=== PATIENT | male | born 1960 | race Caucasian/White ===

== ENCOUNTER → 2018-05-21 15:50 | Outpatient (CLI) | payer OTHER, SELFPAY ==
--- NOTE | 2018-05-21 15:52 | CT_ITS ---
STUDY: LOW DOSE CT LUNG CANCER SCREENING REASON FOR EXAM: Male, 57 years old. 22 pack year history of tobacco use. RADIATION DOSAGE (If Supplied By Facility): CTDIvol = ( 3.40 ) mGy, DLP = ( 108.49 ) mGycm TECHNIQUE: No contrast was administered. Low dose technique was utilized (average mAS-38 and kVp 120). 1.25 mm axial source images with a slice interval of 1.25-mm were reconstructed in lung windows. 2.5 mm axial source images with a slice interval of 2.5-mm were reconstructed in lung windows. 5.0 mm axial source images with a slice interval of 5.0-mm were reconstructed in soft tissue windows. Nodule measured using lung windows on PACS and/or independent workstation with automated measurement of minimum and maximum diameter. Nodule measurement reported as average diameter rounded to the nearest whole number. Growth is defined as an increase ins size of greater than 1.5 mm. COMPARISON: Chest, July 21, 2017. NODULES: Total lung nodules (excluding granulomas): 0 Emphysema: There are small blebs in the right lung apex. No other evidence of emphysematous change. Endobronchial lesion: None Aorta: There is minimal atherosclerotic changes of the thoracic aorta. There is no aneurysm. Coronary arteries: There are coronary artery calcifications. Heart: The heart is normal in size. Pulmonary artery: Normal Mediastinal nodes: Normal Other chest and abdominal findings: There are minimal degenerative changes of the thoracic spine. CT/Low Dose CT Lung Screening IMPRESSION: Lung-RADS category 1 - Continue annual screening with LDCT in 12 months. IMPORTANT NOTES FOR USE: ACR Lung-RADS Version 1.0 Assessment Categories Release Date: February 15, 2014 Category: Coded 0-4 bases on nodule(s) with highest degree of suspicion. Negative screen is defined as categories 1 and 2; a positive screen is defined as categories 3 and 4. Category 3 and 4A nodules that are unchanged on interval CT should be coded as category 2, and individuals returned to screening in 12 months. Category 4X: Category 3 or 4 nodules with additional imaging findings that increase the suspicion of lung cancer, such as spiculation, GGN that doubles in size in 1 year, enlarged lymph notes, etc. Category Modifiers: S (significant finding unrelated to lung cancer) and C (prior history of treated lung cancer) may be added to the 0-4 Lung-RADS Electronically Signed: Curtis Lion DO at 16:21 EDT Tel [phone], Service support ,
== END ==
PROVIDERS: Family Provider Preventive Medicine Occupational Medicine; PCP Preventive Medicine Occupational Medicine; Visit Provider Internal Medicine Pulmonary Disease
DX: Z87.891 Personal history of nicotine dependence (principal)
CPT/HCPCS: G0297

== ENCOUNTER 2021-02-19 21:25 | Emergency (ER) | payer OTHER, MEDICAID, SELFPAY ==
[2021-02-19 21:26] VITALS: BP 152/85; PULSE 95; RESP 18; TEMP 36.7; O2SAT 97; BMI 35.2
[2021-02-19 21:52] LABS: Absolute Lymphocyte Count 1.78 X10^3/uL (0.83-4.51); Basophil# 0.04 X10^3/uL; Basophil% 0.6 % (0-1); Eosinophil# 0.28 X10^3/uL; Hemoglobin 13.4 g/dL (13.0-16.5); Lymphocyte # 1.78 X10^3/ul (0.83-4.51); Lymphocyte % 25.6 % (19-41); Mean Corp Hgb Conc 33.5 g/dL (32-36); Mean Corpuscular Hgb 30.7 pg (27.0-32.0); Mean Corpuscular Volume 91.7 fL (80-94); Mean Platelet Vol. 9.7 fl (6.2-12.0); Monocyte# 0.87 X10^3/uL; Monocyte% 12.5 % (0-10); NRBC Flagged by Analyzer 0 % (0-5); Neutrophil # 3.97 X10^3/uL (2.7-7.7); Platelet Count 225 K/mm3 (150-450); RBC Distribution Width SD 43.6 fl (35.1-43.9); Red Blood Count 4.36 M/mm3 (4.6-6.2)
[2021-02-19 22:06] LABS: Anion Gap 6 (5-15); BUN 20 mg/dL (7-18); BUN/Creat Ratio 17.1 RATIO (10-20); Calcium,Total 9.2 mg/dL (8.5-10.1); Chloride 108 mmol/L (98-107); Creatinine, Serum 1.17 mg/dL (0.70-1.30); EST Glomerular Filtration Rate 68 mL/min (>60); Est Glom Filt Rate - Afr Amer 82 mL/min (>60); Estimated Creatinine Clearance 70.19 ml/min; Glucose 97 mg/dL (74-106); Sodium Level 140 mmol/L (136-145)
--- NOTE | 2021-02-19 22:21 | CT_ITS ---
HISTORY: LLQ pain TECHNIQUE: Helically acquired images were obtained of the abdomen and pelvis without oral or IV contrast. A radiation dose optimization technique was used for this scan. COMPARISON: Most recent comparison study is CT scan of the chest from May 21, 2018. CT scan of the abdomen and pelvis is from May 04, 2016. FINDINGS: # of images incl. paperwork: [phone] LUNG BASES: Lung bases are clear. Coronary artery calcific ASCVD. Aortic valvular disease. CT abdomen: Progressive degenerative disc disease at every level within the lumbar spine with vacuum disc phenomenon. Annular tear with herniation of the vacuum from the nucleus pulposus region into the spinal canal dorsal to the L4-L5 level. This is new since the previous study. The gallbladder has been resected. Liver, spleen, pancreas, and adrenal glands are normal. The right kidney is normal. Left perirenal edema, left hydronephrosis, left hydroureter, left periureteric edema. Within the distal left ureter, within a centimeter of the left ureterovesicular junction is a 3 x 4 mm obstructing stone.. The aorta is diseased with atherosclerotic plaque, but without aneurysm.. There is no intra-or extrahepatic biliary ductal dilatation. CT pelvis: No ascites is present. The prostate gland is not enlarged. Inguinal hernias containing a small amount of fat.. The appendix is normal. Series 2 image 130. The bladder is decompressed. Bowel gas pattern is normal. CT/Abdomen/Pelvis without Cont IMPRESSION: 3 x 4 mm distal left ureteric stone with left hydronephrosis hydroureter and perirenal edema. Individualized dose optimization techniques were used for this CT. at 2305 Reported and signed by: Jeevan Brunner MD Electronically Signed: Jeevan Brunner MD at 23:04 EDT Tel , Service support ,
--- NOTE | 2021-02-19 22:22 | EX.ED.DYSGE1 ---
HPI History of Present Illness Chief Complaint: Abd Pain Informant: patient and spouse/S.O. Narrative Narrative: 60-year-old male states that he has left lower quadrant abdominal pain. He states that he was feeling his normal state of health and he was splitting firewood. He bent over to pick a log up and put it onto the splitter and he had pain in the left lower abdomen. It is worse with movement. He denies any bowel or bladder symptoms. No fevers. No history of diverticulitis. He states that he has had 2 hernia repairs done at [place] in the past. [facility] Medical History (Updated 02/19/21 @ 23:[address] Dylan Matt DO) COPD (chronic obstructive pulmonary disease) Kidney stones Ureterolithiasis Home Medications multivitamin [Daily Multiple Vitamin] 1 ea PO DAILY 05/04/16 [History Last Taken 05/04/16] Spiriva Respimat QHS 02/19/21 [History Last Taken Unknown] aspirin 81 mg PO DAILY 02/19/21 [History Last Taken Unknown] budesonide-formoterol [Symbicort] 2 puff INHALATION BID 02/19/21 [History Last Taken Unknown] bupropion HCl (smoking deter) 150 mg PO DAILY 02/19/21 [History Last Taken Unknown] buspirone 15 mg PO TID 02/19/21 [History Last Taken Unknown] fluticasone propionate [Flonase] 1 spray INTRANASAL PRN PRN 02/19/21 [History Last Taken Unknown] hydrocodone-acetaminophen 1 tab PO Q6H PRN PRN 3 Days #12 tablet 02/19/21 [Rx Last Taken Unknown] ketorolac 10 mg PO Q8H 5 Days #15 tab 02/19/21 [Rx Last Taken Unknown] loratadine-pseudoephedrine [Claritin-D 12 Hour] 1 tab PO DAILY 02/19/21 [History Last Taken Unknown] tamsulosin 0.4 mg PO DAILY #7 capsule 02/19/21 [Rx Last Taken Unknown] Allergy/AdvReac Type Severity Reaction Status Date / Time No Known Allergies Allergy Verified 02/19/21 21:27 Surgical History (Updated 02/19/21 @ 22:[address] Dylan Matt DO) H/O hernia repair Social History (Updated 02/19/21 @ 22:[address] Dylan Matt, DO) household members: spouse Smoking Status: Current every day smoker ROS ROS ED Constitutional Constitutional ED: Denies chills or weight loss Eyes Eyes: Denies change in vision or diplopia ENT ENT ED: Denies ear pain, rhinorrhea or sore throat Cardiovascular Cardiovascular: Denies chest pain, orthopnea, palpitations or racing heartbeat Respiratory/Chest Respiratory/Chest: Denies cough, dyspnea or orthopnea Gastrointestinal Gastrointestinal: Reports abdominal pain; Denies diarrhea, nausea or vomiting Genitourinary Genitourinary ED: Denies dysuria, hematuria or urinary frequency Musculoskeletal Musculoskeletal: Denies arthralgias or myalgias Integumentary Denies abscess or rash Neurologic Neurologic: Denies headache(s) or weakness Psychiatric Psychiatric: Denies anxiety, depression, suicidal ideation or suicidal thoughts Endocrine Endocrinology: Denies polydipsia, polyphagia or polyuria Allergic/Immunologic Allergic/Immunologic ED: Denies mouth swelling, tongue swelling or urticaria EXAM Physical Exam Const Vital Signs: 02/19/21 21:26 02/19/21 23:55 Temperature 98.1 F Temperature Source Temporal Pulse Rate 95 88 Respiratory Rate 18 16 Blood Pressure 152/85 H Blood Pressure Mean 107 Pulse Ox 97 97 Oxygen Delivery Method Room Air Positive well nourished and well developed General Appearance ED: well developed HEENT Reports normocephalic, head/scalp atraumatic and moist mucous membranes Eyes PERRL and EOMs intact bilaterally Neck no lymphadenopathy, supple and no JVD Resp normal respiratory effort and clear to auscultation bilaterally Cardio regular rate, regular rhythm and no murmurs GI normal to inspection, nondistended, normoactive bowel sounds GI Narrative: Tender to palpation in the left lower quadrant. Tenderness is above the inguinal ligament and more towards the left middle quadrant. I do not appreciate any hernia. Palpation: soft and tender Back/Spine no CVA tenderness and normal ROM Extremity normal to inspection General Extremety ED: Negative for edema General Extremity: Negative for edema Neuro oriented x3 and CN's II-XII intact bilaterally Sensorium / Orientation: alert Motor Exam: strength 5/5 throughout Psych mental status grossly normal Mood & Affect: Negative for depressed or tearful Skin no rashes or lesions noted and no wounds MDM MDM MDM Narrative Medical decision making narrative: Basic blood work was negative. Creatinine 1.17. White count 7. Urinalysis shows no infection. CT abdomen pelvis demonstrated a distal left ureteral stone with associated hydronephroureter. Patient received pain and nausea medications. He will be discharged home with pain medications and Flomax. Return if worsening or concerns. Patient notes understanding of the plan. Lab Data Attestation: I reviewed the patient's lab results. Labs: Laboratory Results - last 24 hr 02/19/21 02/19/21 02/19/21 21:45 21:45 23:05 WBC 7.0 RBC 4.36 L Hgb 13.4 Hct 40.0 MCV 91.7 MCH 30.7 MCHC 33.5 RDW Std Deviation 43.6 RDW Coeff of Lillian 13.0 Plt Count 225 MPV 9.7 Immature Gran % (Auto) 0.300 Neut % (Auto) 57.0 Lymph % (Auto) 25.6 Hawkins % (Auto) 12.5 H Eos % (Auto) 4.0 Baso % (Auto) 0.6 Absolute Neuts (auto) 4.0 Absolute Lymphs (auto) 1.78 Nucleated RBC % 0 Sodium 140 Potassium 4.0 Chloride 108 H Carbon Dioxide 26.0 Anion Gap 6 BUN 20 H Creatinine 1.17 Estim Creat Clear Calc 70.19 Est GFR (MDRD) Af Amer 82 Est GFR (MDRD) Non-Af 68 BUN/Creatinine Ratio 17.1 Glucose 97 Calcium 9.2 Urine Color Yellow Urine Clarity Clear Urine pH 6.0 Ur Specific Ocate 1.020 Urine Protein Negative Urine Glucose (UA) Normal Urine Ketones 5 H Urine Occult Blood 50 H Urine Nitrite Negative Urine Bilirubin Negative Urine Urobilinogen 1 H Ur Leukocyte Esterase 25 H Urine RBC 5-10 SEEN Urine WBC 0-5 SEEN Ur Squamous Epith Cells 0 SEEN Urine Bacteria 0 SEEN Urine Mucus 0 SEEN Radiography Diagnostic Testing: Radiology Impression Abdomen/Pelvis CT 02/19/21 22:21 IMPRESSION: 3 x 4 mm distal left ureteric stone with left hydronephrosis hydroureter and perirenal edema. Individualized dose optimization techniques were used for this CT. at 2307 Reported and signed by: Jeevan Brunner MD Electronically Signed: Jeevan Brunner MD at 23:04 EDT Tel , Service support , Discharge Plan Triage Chief Complaint: Abd Pain ED Provider: Dylan Matt Dx/Rx/DC Orders Clinical Impression: Abdominal pain, acute, Ureterolithiasis Instructions: ED Kidney Stone w/ Colic Prescriptions: New hydrocodone-acetaminophen [hydrocodone-acetaminophen] 1 TABLET tablet 1 tab PO Q6H PRN PRN (Reason: Pain) 3 Days Qty: 12 RF: 0 tamsulosin [tamsulosin] 0.4 MG capsule 0.4 mg PO DAILY Qty: 7 RF: 0 ketorolac 10 mg tablet 10 mg PO Q8H 5 Days Qty: 15 RF: 0 No Action multivitamin [Daily Multiple] 1 EACH tablet 1 ea PO DAILY RF: 0 bupropion HCl (smoking deter) 150 mg Tablet Extended Release 12 Hr 150 mg PO DAILY RF: 0 Claritin-D 12 Hour 5-120 mg Tablet Extended Release 12 Hr 1 tab PO DAILY RF: 0 aspirin 81 mg Tablet 81 mg PO DAILY RF: 0 fluticasone propionate [Flonase] 50 mcg/actuation Borup,Suspension 1 spray INTRANASAL PRN PRN (Reason: ALLERGIES) RF: 0 buspirone 15 mg Tablet 15 mg PO TID RF: 0 budesonide-formoterol [Symbicort] 160-4.5 mcg/actuation Hfa Aerosol Inhaler 2 puff INHALATION BID RF: 0 Spiriva Respimat QHS RF: 0 Primary Care Provider: Christophe Zaragoza Referrals: Christophe Zaragoza DO [Primary Care Provider] - As Needed Disposition Disposition: Home, self care Discharge Date/Time: 02/19/21 23:56
[2021-02-19 23:11] LABS: Bacteria 0 SEEN /hpf (None Seen); Mucous, Urine 0 SEEN /hpf (<or=2+); Squamous Epithelial Cells - UA 0 SEEN /hpf (0-5)
[2021-02-19 23:13] LABS: Color, Urine Yellow (Yellow); Glucose, Dipstick Normal (Normal); Ketone-Dipstick 5 mg/dl (Negative); Leukocyte Esterase-Dipstick 25 /ul (Negative); Nitrite-Dipstick Negative (Negative); Occult Blood-Urine 50 /ul (Negative); Protein-Dipstick Negative (Negative); Urine Bilirubin Dipstick Negative (Negative); Urine Clarity Clear (Clear); Urine Urobilinogen 1 mg/dl (Normal)
[2021-02-19] MEDS: Morphine 4 MG/ML Syringe IV (23:35)
[2021-02-19] MEDS: Ketorolac 30 MG/ML Syringe IV (23:36)
[2021-02-19] MEDS: Ondansetron 4 MG/2 ML Vial IV (23:36)
[2021-02-19 23:53] LABS: Red Blood Cells-Urine 5-10 SEEN /hpf (0-5); White Blood Cells 0-5 SEEN /hpf (0-5)
[2021-02-19 23:55] VITALS: PULSE 88; RESP 16; O2SAT 97
== END 2021-02-19 23:56 | disposition home or self-care (01) ==
PROVIDERS: Emergency Provider Emergency Medicine; PCP Preventive Medicine Occupational Medicine
DX: N13.2 Hydronephrosis with renal and ureteral calculous obstruction (principal); J44.9 Chronic obstructive pulmonary disease, unspecified; Z79.82 Long term (current) use of aspirin; Z79.51 Long term (current) use of inhaled steroids; Z79.899 Other long term (current) drug therapy; F17.200 Nicotine dependence, unspecified, uncomplicated; Z87.442 Personal history of urinary calculi
CPT/HCPCS: 74176; 80048; 81001; 85025; 96374; 96375; 99284; A4216; J2405

== ENCOUNTER → 2022-09-17 | Outpatient (CLI) | payer OTHER, SELFPAY ==
[2022-09-17 12:47] VITALS: PULSE 101; PULSE 102; PULSE 103; PULSE 104; PULSE 91; PULSE 92; O2SAT 95; O2SAT 96; O2SAT 97
--- NOTE | 2022-09-18 05:47 | PCM.PSN.6M ---
PSN 6 Minute Walk Test 6 Minute Walk Test 6 Minute Walk Test: 6 Minute Walk Test PSN:6-Minute Walk Test Start: 09/17/22 12:47 Freq: Status: Active Protocol: [id number] Document 09/17/22 12:47 GIO (Rec: 09/17/22 12:53 GIO [id number]) 6 Minute Walk Test Date Performed 09/17/22 Time Performed 12:30 Height 5 ft 10 in Weight: 113.398 kg Weight in Pounds 250.[address]: Samson Kilpatrick Assistive device used: None Pre-test Oxygen Delivery Method Room Air Pulse Ox (%) 95 Pulse Rate (60-100 beats/min) 92 Dyspnea John Scale (0-10) 0 Exertion John Scale (6-20) 6 1st minute Oxygen Delivery Method Room Air Pulse Ox (%) 96 Pulse Rate (60-100 beats/min) 101 H 2nd minute Oxygen Delivery Method Room Air Pulse Ox (%) 96 Pulse Rate (60-100 beats/min) 102 H 3rd minute Oxygen Delivery Method Room Air Pulse Ox (%) 96 Pulse Rate (60-100 beats/min) 103 H 4th minute Oxygen Delivery Method Room Air Pulse Ox (%) 95 Pulse Rate (60-100 beats/min) 103 H 5th minute Oxygen Delivery Method Room Air Pulse Ox (%) 96 Pulse Rate (60-100 beats/min) 104 H 6th minute Oxygen Delivery Method Room Air Pulse Ox (%) 96 Pulse Rate (60-100 beats/min) 104 H Dyspnea John Scale (0-10) 3 Exertion John Scale (6-20) 13 Post-test Oxygen Delivery Method Room Air Pulse Ox (%) 97 Pulse Rate (60-100 beats/min) 91 Full Laps Walked 18 Partial Lap, Number of Tiles Walked 10 Total Distance Walked (ft) 1072 Interpretation Interpretation: The patient was able to ambulate 1072 feet over the course of 6 minutes on room air with no assistive devices or breaks. The patient experienced no significant desaturation, but did have tachycardia as high as 104 bpm. These findings are consistent with deconditioning. Recommendations Recommendations: No supplemental oxygen is indicated at this time
== END | disposition home or self-care (01) ==
LOC: PSN 12:17
PROVIDERS: PCP Preventive Medicine Occupational Medicine; Referring Provider Internal Medicine Critical Care Medicine; Visit Provider Internal Medicine Critical Care Medicine
DX: J44.9 Chronic obstructive pulmonary disease, unspecified (principal)
CPT/HCPCS: 94618

== ENCOUNTER → 2022-09-19 | Outpatient (CLI) | payer OTHER, SELFPAY ==
--- NOTE | 2022-09-21 10:48 | PFT ---
INTRODUCTION: The patient is a 61-year-old male that presents for pulmonary function studies secondary to a diagnosis of COPD. Respiratory therapy reported good patient effort. Bronchodilators were used during testing. INTERPRETATION: Forced expiration spirometry demonstrates the presence of a moderately severe large airways obstructive ventilatory defect. There was no significant response to aerosolized bronchodilators. Spirograms are of good quality and plateau gradually indicating slow emptying of the lungs. Body plethysmography was performed and revealed a decreased TLC to 4.78 L, 72% of predicted, indicative of a mild restrictive ventilatory impairment. Diffusing capacity by single breath CO is within normal limits. IMPRESSION: Irreversible moderately severe mixed ventilatory defect with preserved diffusing capacity.
== END | disposition home or self-care (01) ==
LOC: PSN 06:40
PROVIDERS: PCP Preventive Medicine Occupational Medicine; Visit Provider Internal Medicine Critical Care Medicine
DX: J44.9 Chronic obstructive pulmonary disease, unspecified (principal)
CPT/HCPCS: 94060; 94726; 94729

== ENCOUNTER → 2022-09-27 | Outpatient (CLI) | payer OTHER, SELFPAY ==
[2022-09-27 15:45] LABS: Absolute Lymphocyte Count 1.57 X10^3/uL (0.83-4.51); Absolute Neutrophil Count 4.9 X10^3/uL (2.0-7.7); Basophil# 0.06 X10^3/uL; Basophil% 0.8 % (0-1); Eosinophil# 0.31 X10^3/uL; Eosinophils% 4.1 % (0-5); Hematocrit 43.4 % (40-54); Lymphocyte # 1.57 X10^3/ul (0.83-4.51); Lymphocyte % 20.8 % (19-41); Mean Corp Hgb Conc 34.6 g/dL (32-36); Mean Corpuscular Hgb 31.2 pg (27.0-32.0); Mean Corpuscular Volume 90.2 fL (80-94); Mean Platelet Vol. 9.9 fl (6.2-12.0); Monocyte# 0.73 X10^3/uL; Monocyte% 9.7 % (0-10); NRBC Flagged by Analyzer 0 % (0-5); Neutrophil # 4.86 X10^3/uL (2.7-7.7); Neutrophil % 64.5 % (47-70); Platelet Count 241 K/mm3 (150-450); RBC Distribution Width CV 12.9 % (11.6-14.6); RBC Distribution Width SD 42.6 fl (35.1-43.9); Red Blood Count 4.81 M/mm3 (4.6-6.2); White Blood Count 7.5 K/mm3 (4.4-11.0)
[2022-10-02 20:07] LABS: Aspirgillus flavus Negative (Neg:<1:1); Aspirgillus fumigatus Negative (Neg:<1:1); Aspirgillus niger Negative (Neg:<1:1)
[2022-10-03 11:03] LABS: Immunoglobulin E 1668 IU/mL (6-495)
[2022-10-03 14:08] LABS: Alternaria alternata 0.16 kU/L (Class 0/I); Bermuda Grass 0.23 kU/L (Class 0/I); Bluegrass, Kentucky <0.10 kU/L (Class 0); Cat Hair/Dander, Standard <0.10 kU/L (Class 0); D farinae Mite 2.52 kU/L (Class III); D pteronyssinus 3.25 kU/L (Class III); Dog Epithelia <0.10 kU/L (Class 0); Elm, American White 0.13 kU/L (Class 0/I); Oak, White 0.14 kU/L (Class 0/I); Plantain, English <0.10 kU/L (Class 0); Ragweed, Short/Common 0.45 kU/L (Class I)
[2022-10-04 10:29] LABS: Mouse Urine <0.10 kU/L (Class 0)
== END | disposition home or self-care (01) ==
LOC: PAVLAB 15:10
PROVIDERS: PCP Preventive Medicine Occupational Medicine; Referring Provider Nurse Practitioner Acute Care; Visit Provider Nurse Practitioner Acute Care
DX: J45.909 Unspecified asthma, uncomplicated (principal)
CPT/HCPCS: 36415; 82785; 85025; 86003; 86606

== ENCOUNTER → 2024-12-04 | Outpatient (CLI) | payer BC, SELFPAY ==
[2024-12-08 18:07] LABS: QNTFERON TB Mitogen Value > 10.00 IU/mL (.); QNTFERON TB Nil Value 0.05 IU/mL (.); QNTFERON TB1+ Ag Value 0.07 IU/mL (.); QNTFERON TB2+ Ag Value 0.08 IU/mL (.); QNTIFERON TB Positive Criteria Negative (Negative)
== END | disposition home or self-care (01) ==
LOC: MTLAB 10:46
PROVIDERS: PCP Preventive Medicine Occupational Medicine; Referring Provider Dermatology Pediatric Dermatology; Visit Provider Dermatology Pediatric Dermatology
DX: L40.0 Psoriasis vulgaris (principal); L40.59 Other psoriatic arthropathy; Z79.899 Other long term (current) drug therapy
CPT/HCPCS: 36415; 86480

== ENCOUNTER 2025-02-06 12:42 | Emergency (ER) | payer BC, SELFPAY ==
[2025-02-06 12:43] VITALS: BP 156/82; PULSE 61; RESP 24; TEMP 36.7; O2SAT 96; BMI 37.0
--- NOTE | 2025-02-06 12:54 | US_ITS ---
PROCEDURE: ABDOMEN LIMITED 02/06/2025 REASON FOR EXAM: RUQ PAIN COMPARISON: None. FINDINGS: Liver: Grossly normal size and echotexture, measuring 18.8 cm. The bile ducts are normal in size. The main portal vein is patent with normal directional flow. Gallbladder: Surgically absent. Common bile duct: Normal measuring 0.4 cm. Pancreas: Obscured by bowel gas. Other: The right kidney measures 10.6 x 5.6 cm. Small right midpole renal calculus measuring 0.5 x 0.5 cm. No hydronephrosis. US/Abdomen Limited IMPRESSION: 1. Nonobstructing right midpole renal calculus. No hydronephrosis. 2. Prior cholecystectomy. Reading Location: [id number]
--- NOTE | 2025-02-06 12:56 | EX.ED.DYSGE1 ---
HPI <TRINA Liagn - Last Filed: 02/06/25 16:29> History of Present Illness Chief Complaint: Abd Pain Narrative Narrative: 64-year-old male with PMH of COPD, cholecystectomy presents with RUQ abdominal pain. Yesterday he developed mild RUQ pain when bending over into a freezer. The pain is worse today. He has decreased appetite but no nausea or vomiting. He had 2 episodes of diarrhea yesterday but denies melena or hematochezia. No urinary symptoms. He denies smoking or drinking alcohol. PFSH <TRINA Liang - Last Filed: 02/06/25 16:29> [facility] Medical History (Updated 02/06/25 @ 16:02 by TRINA Liang) Asthma Ureterolithiasis Kidney stones COPD (chronic obstructive pulmonary disease) Home Medications ?Medication ?Instructions ?Recorded ?Last Taken ?Type aspirin 81 mg tablet 81 mg PO DAILY 02/19/21 Unknown History bupropion HCl (smoking deter) 150 150 mg PO DAILY 02/19/21 Unknown History mg tablet,12 hr sustained-release(smoking deterrent) buspirone 15 mg tablet 15 mg PO BID 02/19/21 Unknown History fluticasone propionate 50 1 spray intranasal PRN PRN 02/19/21 Unknown History mcg/actuation nasal ALLERGIES spray,suspension loratadine 5 mg-pseudoephedrine ER 1 tab PO DAILY 02/19/21 Unknown History 120 mg tablet,extended release,12hr (Claritin-D 12 Hour) atorvastatin 20 mg tablet 20 mg PO QPM 06/28/22 Unknown History prednisone 20 mg tablet 20 mg PO DAILY PRN copd 06/28/22 Unknown History multivitamin 1 tab PO DAILY 09/27/22 Unknown History albuterol sulfate 2.5 mg/3 mL 2.5 mg (3 mL) inhalation Q4H PRN 09/29/22 Unknown Rx (0.083 %) solution for nebulization shortness of breath or wheezing #180 mL escitalopram oxalate 10 mg tablet 10 mg PO DAILY 02/06/25 Unknown History fluticasone fur. 200 mcg-umeclid 1 ea inhalation DAILY 02/06/25 Unknown History 62.5 mcg-vilant 25 mcg inhalat.powder (Trelegy Ellipta) Allergy/AdvReac Type Severity Reaction Status Date / Time No Known Allergies Allergy Verified 02/06/25 12:43 Surgical History H/O hernia repair Social History household members: spouse Smoking Status: Former smoker ROS <TRINA Liang - Last Filed: 02/06/25 16:29> ROS ED ROS Narrative Constitutional: Negative for fever, chills, malaise. CVS: Negative for chest pain. Respiratory: Negative for shortness of breath, cough. GI: Positive for abdominal pain, diarrhea. Negative for vomiting, constipation, melena, hematochezia. : Negative for dysuria, hematuria or frequency. EXAM <TRINA Liang - Last Filed: 02/06/25 16:29> Physical Exam Narrative Exam Narrative: CONST: Patient appears uncomfortable sitting in bed. EYES: Normal inspection. NECK: Normal inspection. RESP: No respiratory distress, CTAB. CVS: Regular rate and rhythm, no murmur, no gallop. ABD: Obese abdomen soft with RUQ tenderness, no guarding or rebound, nondistended. SKIN: Color normal, no rash, warm, dry, intact. EXTREMITIES: Normal appearance, no pedal edema. NEURO: Alert and answering questions appropriately. PSYCH: Normal affect. Const Vital Signs: 02/06/25 12:43 02/06/25 14:42 02/06/25 16:04 Temperature 98.1 F 97.5 F L Temperature Source Temporal Oral Pulse Rate 61 63 63 Respiratory Rate 24 H 16 16 Blood Pressure 156/82 H 106/71 115/75 Blood Pressure Mean 106 82 88 Pulse Ox 96 98 95 Oxygen Delivery Method Room Air Room Air Room Air 02/06/25 16:19 Temperature 97.5 F L Temperature Source Pulse Rate 63 Respiratory Rate 16 Blood Pressure 115/75 Blood Pressure Mean 88 Pulse Ox 95 Oxygen Delivery Method <Dr. Trip Enriquez DO - Last Filed: 02/06/25 16:24> Physical Exam Const Vital Signs: 02/06/25 12:43 02/06/25 14:42 02/06/25 16:04 Temperature 98.1 F 97.5 F L Temperature Source Temporal Oral Pulse Rate 61 63 63 Respiratory Rate 24 H 16 16 Blood Pressure 156/82 H 106/71 115/75 Blood Pressure Mean 106 82 88 Pulse Ox 96 98 95 Oxygen Delivery Method Room Air Room Air Room Air 02/06/25 16:19 Temperature 97.5 F L Temperature Source Pulse Rate 63 Respiratory Rate 16 Blood Pressure 115/75 Blood Pressure Mean 88 Pulse Ox 95 Oxygen Delivery Method [facility] <TRINA Liang - Last Filed: 02/06/25 16:29> [facility] Narrative Medical decision making narrative: 64-year-old male presents with RUQ abdominal pain that started yesterday and worsened today. He has a history of cholecystectomy. He appears well and nontoxic. Vital signs stable. Cardiopulmonary exam is within normal limits. Abdomen is soft with right upper quadrant tenderness without peritoneal signs. Labs show WBC of 11.6, glucose 151, otherwise unremarkable. LFTs and lipase are within normal limits. Gallbladder ultrasound shows no acute findings. He was initially treated with IV morphine, and Zofran and on reassessment after his normal gallbladder ultrasound states he is still having a lot of pain. I ordered a second dose of IV morphine and a CT scan of the abdomen/pelvis. It shows no acute findings. I informed him of the incidental right lower lobe pulmonary nodule which will need outpatient monitoring. He was treated with IV Toradol with some improvement. Since his symptoms started while bending over this could be musculoskeletal but the etiology is not clear. I recommended [id number] pain relievers and close follow-up with his primary care doctor. Return if symptoms worsen. He was discharged in stable condition. Lab Data Attestation: I reviewed the patient's lab results. Labs: Laboratory Results - last 24 hr 02/06/25 02/06/25 13:13 15:54 WBC 11.6 H RBC 4.56 L Hgb 13.8 Hct 39.8 L MCV 87.3 MCH 30.3 MCHC 34.7 RDW Std Deviation 41.7 RDW Coeff of Lillian 13.1 Plt Count 280 MPV 9.8 Immature Gran % (Auto) 0.800 Neut % (Auto) 62.8 Lymph % (Auto) 21.7 [place] % (Auto) 9.1 Eos % (Auto) 5.0 Baso % (Auto) 0.6 Absolute Neuts (auto) 7.3 Absolute Lymphs (auto) 2.52 Nucleated RBC % 0 Sodium 137 Potassium 3.7 Chloride 102 Carbon Dioxide 23.7 Anion Gap 11 BUN 15 Creatinine 0.77 Estim Creat Clear Calc 125.90 Est GFR (MDRD) Non-Af 100 BUN/Creatinine Ratio 19.4 Glucose 151 H Calcium 9.4 Total Bilirubin 0.33 AST 24 ALT 31 Alkaline Phosphatase 51 Total Protein 7.2 Albumin 4.2 Globulin 3.0 Albumin/Globulin Ratio 1.4 Lipase 15 Urine Color Yellow Urine Clarity Clear Urine pH 5.0 Ur Specific [place] 1.010 Urine Protein 30 H Urine Glucose (UA) Normal Urine Ketones Negative Urine Occult Blood Negative Urine Nitrite Negative Urine Bilirubin Negative Urine Urobilinogen Normal Ur Leukocyte Esterase Negative Urine RBC 0 SEEN Urine WBC 0 SEEN Ur Squamous Epith Cells 0 SEEN Calcium Oxalate Crystal 2+ Urine Bacteria 0 SEEN Urine Mucus 0 SEEN Radiography Diagnostic Testing: Clinical Impression(s) from Imaging Studies Abdomen Ultrasound 02/06/25 12:54 IMPRESSION: 1. Nonobstructing right midpole renal calculus. No hydronephrosis. 2. Prior cholecystectomy. Reading Location: [facility] Abdomen/Pelvis CT 02/06/25 14:36 IMPRESSION: 1. No acute abdominopelvic finding. 2. Tiny nonobstructing bilateral renal calculi. 3. Right lower lobe pulmonary nodule. If patient is high risk, follow-up CT chest in 12 months could be obtained. Otherwise no follow-up required. Reading Location: [facility] <Dr. Trip Enriquez, DO - Last Filed: 02/06/25 16:24> [facility] Lab Data Labs: Laboratory Results - last 24 hr 02/06/25 02/06/25 13:13 15:54 WBC 11.6 H RBC 4.56 L Hgb 13.8 Hct 39.8 L MCV 87.3 MCH 30.3 MCHC 34.7 RDW Std Deviation 41.7 RDW Coeff of [place]illian 13.1 Plt Count 280 MPV 9.8 Immature Gran % (Auto) 0.800 Neut % (Auto) 62.8 Lymph % (Auto) 21.7 [place] % (Auto) 9.1 Eos % (Auto) 5.0 Baso % (Auto) 0.6 Absolute Neuts (auto) 7.3 Absolute Lymphs (auto) 2.52 Nucleated RBC % 0 Sodium 137 Potassium 3.7 Chloride 102 Carbon Dioxide 23.7 Anion Gap 11 BUN 15 Creatinine 0.77 Estim Creat Clear Calc 125.90 Est GFR (MDRD) Non-Af 100 BUN/Creatinine Ratio 19.4 Glucose 151 H Calcium 9.4 Total Bilirubin 0.33 AST 24 ALT 31 Alkaline Phosphatase 51 Total Protein 7.2 Albumin 4.2 Globulin 3.0 Albumin/Globulin Ratio 1.4 Lipase 15 Urine Color Yellow Urine Clarity Clear Urine pH 5.0 Ur Specific [place] 1.010 Urine Protein 30 H Urine Glucose (UA) Normal Urine Ketones Negative Urine Occult Blood Negative Urine Nitrite Negative Urine Bilirubin Negative Urine Urobilinogen Normal Ur Leukocyte Esterase Negative Urine RBC 0 SEEN Urine WBC 0 SEEN Ur Squamous Epith Cells 0 SEEN Calcium Oxalate Crystal 2+ Urine Bacteria 0 SEEN Urine Mucus 0 SEEN Radiography Diagnostic Testing: Clinical Impression(s) from Imaging Studies Abdomen Ultrasound 02/06/25 12:54 IMPRESSION: 1. Nonobstructing right midpole renal calculus. No hydronephrosis. 2. Prior cholecystectomy. Reading Location: [facility] Abdomen/Pelvis CT 02/06/25 14:36 IMPRESSION: 1. No acute abdominopelvic finding. 2. Tiny nonobstructing bilateral renal calculi. 3. Right lower lobe pulmonary nodule. If patient is high risk, follow-up CT chest in 12 months could be obtained. Otherwise no follow-up required. Reading Location: [facility] Treatment and Re-Evaluation :: I have personally performed a face to face assessment of the patient and have reviewed the GEOVANNY Note. I performed a substantive portion of the visit including all aspects of the following. My olvera findings include: History: Patient presents with abdominal pain that began yesterday. Patient states he was bending forward when the pain began. Patient states that the pain is mainly over his right upper abdomen. Patient describes it as aching. Patient states it is worse with movement, breathing, and coughing. Patient denies any nausea or vomiting. Patient admits to some diarrhea but denies any melena or hematochezia. Patient denies any urinary complaints. Exam: Vital signs are stable. Patient is afebrile. Patient is in no acute distress. Oral mucosa is pink and moist. Neck is supple. Trachea is midline. There is no JVD. Heart with regular rate and rhythm. Lungs are clear and equal bilaterally. Abdomen is soft. Bowel sounds are normal. There is right upper quadrant tenderness. There is no rebound or guarding noted. Cranial nerves II through XII are intact. There are no focal motor or sensory deficits noted. Medical Decision Making: Differential diagnosis includes choledocholithiasis, pancreatitis, peptic ulcer disease, duodenal ulcer, bowel obstruction, perforation, dehydration, and electrolyte abnormality. CBC will be obtained to assess for leukocytosis and anemia. Comprehensive metabolic profile will be obtained to assess for hepatic function, renal function, and electrolyte abnormality. Lipase will be obtained to assess for pancreatitis. Urinalysis will be obtained to assess for urinary tract infection and hematuria. Right upper quadrant ultrasound will be obtained to assess for choledocholithiasis. Patient was given morphine and Zofran. CBC was reviewed. There is a mild leukocytosis of 11.6. The remainder was essentially within normal limits. Comprehensive metabolic profile was reviewed. Glucose was mildly elevated at 151. The remainder was within normal limits. Lipase was reviewed and was normal at 15. Abdominal ultrasound was obtained. There is no evidence of choledocholithiasis. There is a right renal calculus but no ureteral obstruction. This was interpreted by the radiologist and was also independently reviewed by myself. Patient has been having persistent pain. Because of this, CT of the abdomen and pelvis will be obtained to assess for bowel obstruction or perforation. CT scan of the abdomen and pelvis was obtained. There is no acute intra-abdominal abnormality noted. There are nonobstructing renal calculi but no ureteral calculi. This was interpreted by the radiologist and was independently reviewed by myself patient was advised of his findings. Patient was instructed to use ice packs to the area. Patient was instructed to follow-up with his primary care physician for further evaluation. Patient understood and was agreeable with the plan. All questions were answered. Discharge Plan Triage Chief Complaint: Abd Pain ED Midlevel Provider: Katalina Monique ED Provider: Trip Enriquez Dx/Rx/DC Orders Clinical Impression: Abdominal pain, acute, right upper quadrant Instructions: Abdominal Pain Prescriptions: No Action atorvastatin 20 mg tablet 20 mg PO QPM prednisone 20 mg tablet 20 mg PO DAILY PRN (Reason: copd) multivitamin Tablet 1 tab PO DAILY bupropion HCl (smoking deter) 150 mg Tablet Extended Release 12 Hr 150 mg PO DAILY Claritin-D 12 Hour 5-120 mg Tablet Extended Release 12 Hr 1 tab PO DAILY aspirin 81 mg Tablet 81 mg PO DAILY fluticasone propionate [Flonase] 50 mcg/actuation [place],Suspension 1 spray INTRANASAL PRN PRN (Reason: ALLERGIES) buspirone 15 mg Tablet 15 mg PO BID Trelegy Ellipta 200-62.5-25 mcg blister with device 1 ea inhalation DAILY escitalopram oxalate 10 mg tablet 10 mg PO DAILY albuterol sulfate 2.5 mg /3 mL (0.083 %) solution for nebulization 2.5 mg inhalation Q4H PRN (Reason: shortness of breath or wheezing) Qty: 180 3RF Primary Care Provider: Christophe Zaragoza Referrals: Christophe Zaragoza DO [Primary Care Provider] - Activity Restrictions/Additional Instructions: Your testing is normal and the reason for your pain is not clear. It could be musculoskeletal. Ice and take Tylenol or Motrin as needed. Follow-up with your primary care doctor. Return if symptoms worsen. Print Language: [place] Citizen Disposition Disposition: Home, Self Care
[2025-02-06] MEDS: Morphine 4 MG/ML Syringe IV ×2 (13:08→14:44)
[2025-02-06] MEDS: Ondansetron 4 MG/2 ML Vial IV (13:08)
[2025-02-06 13:24] LABS: Absolute Lymphocyte Count 2.52 X10^3/uL (0.83-4.51); Absolute Neutrophil Count 7.3 X10^3/uL (2.0-7.7); Basophil# 0.07 X10^3/uL; Basophil% 0.6 % (0-1); Eosinophil# 0.58 X10^3/uL; Hematocrit 39.8 % (40-54); Hemoglobin 13.8 g/dL (13.0-16.5); Lymphocyte # 2.52 X10^3/ul (0.83-4.51); Lymphocyte % 21.7 % (19-41); Mean Corp Hgb Conc 34.7 g/dL (32-36); Mean Corpuscular Hgb 30.3 pg (27.0-32.0); Mean Corpuscular Volume 87.3 fL (80-94); Mean Platelet Vol. 9.8 fl (6.2-12.0); Monocyte# 1.06 X10^3/uL; Monocyte% 9.1 % (0-10); NRBC Flagged by Analyzer 0 % (0-5); Neutrophil # 7.27 X10^3/uL (2.7-7.7); Neutrophil % 62.8 % (47-70); Platelet Count 280 K/mm3 (150-450); RBC Distribution Width CV 13.1 % (11.6-14.6); RBC Distribution Width SD 41.7 fl (35.1-43.9); Red Blood Count 4.56 M/mm3 (4.6-6.2); White Blood Count 11.6 K/mm3 (4.4-11.0)
[2025-02-06 13:52] LABS: ALB/GLOB Ratio 1.4 RATIO (0.9-2.4); AST(SGOT) 24 U/L (<=37); Alanine Aminotransfer ALT/SGPT 31 U/L (<=46); Albumin, Serum 4.2 g/dL (3.4-4.8); Alkaline Phosphatase 51 U/L (40-129); Anion Gap 11 (5-15); BUN 15 mg/dL (4-19); BUN/Creat Ratio 19.4 RATIO (10-20); Calcium,Total 9.4 mg/dL (7.6-11.0); Carbon Dioxide 23.7 mmol/L (21.0-32.0); Chloride 102 mmol/L (98-108); Creatinine, Serum 0.77 mg/dL (0.70-1.20); EST Glomerular Filtration Rate 100 (>60); Glucose 151 mg/dL (70-99); Lipase 15 U/L (13-75); Potassium 3.7 mmol/L (3.3-5.1); Protein, Total 7.2 g/dL (5.9-8.4); Sodium Level 137 mmol/L (133-145); Total Bilirubin 0.33 mg/dL (0.00-1.30)
--- NOTE | 2025-02-06 14:36 | CT_ITS ---
PROCEDURE: ABDOMEN/PELVIS W IV CONT ONLY 02/06/2025 REASON FOR EXAM: RUQ PAIN TECHNIQUE: Abdomen and pelvis CT with intravenous contrast. Coronal and Sagittal reconstruction series were provided. PATIENT PREPARATION: Per protocol ORAL CONTRAST TYPE: None. CONTRAST: Isovue 370 VOLUME: 100 mL One or more dose reduction techniques were used (e.g., Automated exposure control, adjustment of the mA and/or kV according to patient size, use of iterative reconstruction technique. RADIATION DOSE SUMMARY: CTDlvol: 50 mGy DLP: 1300 mGycm COMPARISON: Same day right upper quadrant ultrasound. FINDINGS: Lung bases: Right lower lobe pulmonary nodule (series 2, image 5) measuring 0.5 cm. The heart is normal in size with coronary artery calcifications. Liver: The liver is normal in size without focal hepatic mass. The major portal veins are patent. No biliary ductal dilation. Gallbladder: Prior cholecystectomy. Spleen: Normal in size. Pancreas: Pancreatic atrophy. Adrenals: No adrenal mass. Kidneys: Tiny nonobstructing right midpole renal calculus and left lower pole renal calculus. Bilateral renal cysts and additional hypodensities. No hydronephrosis. Bladder: Mildly distended and unremarkable. Reproductive Organs: Dystrophic calcifications within the prostate gland. Bowel: The bowel loops are normal in caliber. No ascites or pneumoperitoneum. Normal appendix. Lymph nodes: No suspicious lymphadenopathy. Vasculature: Moderate calcific plaque of the aortoiliac vessels. Bones: Thoracolumbar spondylosis. CT/Abdomen/Pelvis W IV Cont ONLY IMPRESSION: 1. No acute abdominopelvic finding. 2. Tiny nonobstructing bilateral renal calculi. 3. Right lower lobe pulmonary nodule. If patient is high risk, follow-up CT ch est in 12 months could be obtained. Otherwise no follow-up required. Reading Location: [id number]
[2025-02-06 14:42] VITALS: BP 106/71; PULSE 63; RESP 16; TEMP 36.4; O2SAT 98
[2025-02-06] MEDS: 0.9% Normal Saline (1000mL) 1,000 ML 999 ML IV (14:44)
[2025-02-06 15:58] LABS: Bacteria 0 SEEN /hpf (None Seen); Mucous, Urine 0 SEEN /hpf (<or=2+); Red Blood Cells-Urine 0 SEEN /hpf (0-5); Squamous Epithelial Cells - UA 0 SEEN /hpf (0-5); White Blood Cells 0 SEEN /hpf (0-5)
[2025-02-06 16:00] LABS: Color, Urine Yellow (Yellow); Glucose, Dipstick Normal (Normal); Ketone-Dipstick Negative (Negative); Leukocyte Esterase-Dipstick Negative /ul (Negative); Nitrite-Dipstick Negative (Negative); Occult Blood-Urine Negative /ul (Negative); Protein-Dipstick 30 mg/dl (Negative); Urine Bilirubin Dipstick Negative (Negative); Urine Clarity Clear (Clear); Urine Urobilinogen Normal (Normal)
[2025-02-06] MEDS: Ketorolac 15 MG/ML Vial IV (16:00)
[2025-02-06 16:04] VITALS: BP 115/75; PULSE 63; RESP 16; O2SAT 95
[2025-02-06 16:06] LABS: Calcium Oxalate Crystals Ur 2+ /hpf (<or=2+)
[2025-02-06 16:19] VITALS: BP 115/75; PULSE 63; RESP 16; TEMP 36.4; O2SAT 95
== END 2025-02-06 16:31 | disposition home or self-care (01) ==
PROVIDERS: Physician Assistant; Emergency Provider Emergency Medicine; PCP Preventive Medicine Occupational Medicine; Visit Provider Emergency Medicine
DX: R10.11 Right upper quadrant pain (principal); J44.9 Chronic obstructive pulmonary disease, unspecified; R91.1 Solitary pulmonary nodule; R19.7 Diarrhea, unspecified; Z79.82 Long term (current) use of aspirin; Z87.891 Personal history of nicotine dependence; Z90.49 Acquired absence of other specified parts of digestive tract
CPT/HCPCS: 74177; 76705; 80053; 81001; 83690; 85025; 96361; 96374; 96375; 96376; 99283; Q9967; A4216; J2405